=== PATIENT | male | born 2000 ===

== ENCOUNTER 2024-12-09 06:30 | Outpatient (REF) | payer OTHER, SELFPAY ==
--- NOTE | ~2024-12-09 | US_ITS ---
CLINICAL HISTORY: DYSURIA US RENAL Comparison: None Findings: Right kidney normal size and echotexture, 11.1 cm length. Left kidney normal size and echotexture, 10.2 cm length. No hydronephrosis of either kidney. No large shadowing calculus or cortical mass lesion. Urinary bladder is physiologically distended with diffuse wall thickening measuring 5.6 mm. Prevoid volume 232 mL. Postvoid volume 48 mL. Bilateral ureteral jets are visualized. Normal prostate size. IMPRESSION: 1. No hydronephrosis. 2. Urinary bladder wall thickening for which the possibility of cystitis is raised. This document has been electronically signed by: Deysi Cortes DO on 12/09/2024 14:10:36
--- OUTSIDE RECORDS SUMMARY | 2024-12-09 06:33 | XMS_ITS | Clinical Summary ---
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 Tavist is not available now which did help. No meds now Nevus 05/23/2015 Overview (06/17/2017): 05/23/2015 Note 04/2013: Flat brown nevi of sole of R foot and L palm. Saw Dr. Evans. Resolved Problems Problem Noted Date Diagnosed Date Resolved Date Fatigue 08/14/2017 12/02/2018 Overview (09/04/2017): Had nausea occurring after meals, July 2017 Possibly related to food, lack of sleep, or recent surgery Labs 09/04/17 Assessment & Plan (08/14/2017 1:45 PM EST): Keep track of meals and possible triggers for nausea Consider a trial off of dairy if it seems likely Consider labs in the future Stay well hydrated Sleep disturbance 08/14/2017 12/02/2018 Assessment & Plan (08/14/2017 1:46 PM EST): Turn off electronics/screens at least 1-2 hours before bedtime Restart exercise program/PT Consider melatonin 3 mg one hour prior to bedtime Immunizations Immunization Administration Dates Next Due DTaP 2004, 2,2000,05/30,2000 HPV, Quadrivalent 12/03/2012,07/31/2012,05/16/20 12 Hep A, ped/adol 12/02/2018 Hep B, ped/adol 2000,2000,2000 Hib (PRP-T) 05/01/2001, 1,2000,03/30 IPV 2004, 1,2000,03/30 Influenza 04/19/2009,05/14/2008,04/16/2008 Influenza, injectable, quadr ivalent, preservative free 06/18/2017,06/06/2016,05/27/2015 Influenza, intranasal, quadrivalent 05/20/2014,1 Influenza, intranasal, trivalent 05/16/2012,1009/2010,04/21/2010 MMR 01/30/2005,05/01/2001 Meningococcal Conj (Menactra) MCV4P 06/18/2017,1 Pneumococcal Conjugate 01/29/2001,2000,2000,03/30 Tdap 04/24/2011 Varicella 04/11/2007,01/29/2001 Family History Relation Name Status Comments Father Alive Maternal Grandfather Alive Materna l Uncle: depression, substance abuse Maternal Grandmother Alive Mat GMo ther: arthritis, hearing problems, hepatitis, migraine Mother Alive Other 1 Alive Other 2 Alive Other 3 Alive Other 4 Alive Other 5 Alive arthritis, hear ing problems, hepatitis, migraine Other 6 Alive cholesterol or lipids, hypertension Other 7 Alive depression, sub stance abuse Paternal Grandfather Alive Pat GFa ther: cholesterol or lipids, hypertension Social History Tobacco Use Types Packs/Day Years Used Date Smoking Tobacco: Never Smokeless Tobacco: Never Alcohol Use Standard Drinks/Week Comments No 0 (1 standard drink = 0.6 oz pur e alcohol) Sex and Gender Information Value Date Recorded Sex Assigned at Not on file Legal Sex Male 11:11 PM EST Gender Identity Not on file Sexual Orientation Not on file Last Filed Vital Signs Vital Sign Reading Time Taken Comments Blood Pressure 110/52 08/14/2017 1:25 PM EST Pulse 80 08/14/2017 1:25 PM EST Temperature 37.4 ??C (99.4 ??F) 12/02/2018 4:32 PM ED T Respiratory Rate - - Oxygen Saturation - - Inhaled Oxygen Concentration - - Weight 61.1 kg (134 lb 9.6 oz) 08/14/2017 1:25 P M EST Height 167.6 cm (5' 6 ) 06/18/2017 9:05 AM EST Body Mass Index - - Plan of Treatment Health Maintenance Due Date Last Done Comments Hepatitis A Vaccines (2 of 2 - 2-dose series) 06/04/2019 12/02/2018 DTaP,Tdap,and Td Vaccines (7 - Td or Tdap) 04/24/2021 04/24/2011, 2004, 08/01/2001, Additional history exists Influenza Vaccines (#1) 2024 06/18/20 17, 06/06/2016, 05/27/2015, Additional history exists COVID-19 Vaccine ( season) 2024 Hepatitis B Vaccines Completed 2000, 2000, 2000 Pneumococcal Vaccine Completed 01/29/2001, 2000, 2000, Additional history exists HIB Vaccines Completed 05/01/2001, 03/2001, 2000, Additional history exists IPV Vaccines Completed 2004, 01/20, 2000, Additional history exists MMR Vaccines Completed 01/30/2005, 05/01/2001 Varicella Vaccines Completed 04/11/2007, 01/29/2001 HPV Vaccines Completed 12/03/2012, 03/2013, 05/16/2012 Meningococcal Vaccine Completed 06/18/2017, 011 Men B Vaccine Aged Out No longer elig ible based on patient's age to complete [place] [address] [facility] [address] [facility]
== END 2024-12-09 06:31 | disposition home or self-care (01) ==
LOC: HO.UMASIMG 06:30
PROVIDERS: Visit Provider Physician Assistant Medical
DX: R30.0 Dysuria (principal)
CPT/HCPCS: 76770

== ENCOUNTER → 2024-12-09 08:30 | Outpatient (BNV) | payer OTHER, SELFPAY | PROVIDERS: Visit Provider Radiology Diagnostic Radiology | DX: N32.89 Other specified disorders of bladder (principal) | CPT/HCPCS: 76770 ==